=== PATIENT | male | born 1985 ===

== ENCOUNTER 2019-12-11 03:21 | Emergency (ER) | payer SELFPAY ==
[2019-12-11 03:31] VITALS: BP 168/95
[2019-12-11] MEDS ORDERED: TETRACAINE 0.5% OPHTH SOLN 4ML OU PRN (04:04)
[2019-12-11] MEDS ORDERED: FLUORESCEIN 1 MG STRIP OP ONE (04:04)
[2019-12-11] MEDS ORDERED: SODIUM CHLORIDE 0.9% 1000 ML 1,000 ML ONE (04:12)
[2019-12-11] MEDS ORDERED: SODIUM CHLORIDE 0.9% 1000 ML 1,000 ML IV ONE (04:18)
--- NOTE | 2019-12-11 06:25 | Emergency Department Report ---
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 Majority splash went to his left got a burning pain and blurry vision for which he presented to the emergency department for further evaluation and treatment options. Reports no neck pain, no odynophagia dysphagia aphasia. No fevers chills or sweats no headache. Reports no nausea or vomiting MD chief complaint: eye pain, eye redness, eye injury -: Gradual Location: left eye Place: work If Injury: none Severity: mild, moderate Consistency: constant Associated Symptoms: none. denies: nausea/vomiting, cough Treatments Prior to Arrival: none - Related Data Previous Rx's Medication Instructions Recorded Last Taken Type Ketorolac Tromethamin 0.4%(Nf) 1 drop OP QID #1 bottle 12/11/19 Unknown Rx [Acular Ls 0.4% Ophth Kimmie] Tobramycin [Tobrex] 1 drop OP Q4H #1 bottle 12/11/19 Unknown Rx Allergies Allergy/AdvReac Type Severity Reaction Status Date / Time No Known Allergies Allergy Verified 12/11/19 04:19 ED Review of Systems ROS: Stated complaint: EYE IRRITATION FROM [facility] Other details as noted in HPI Comment: All other systems reviewed and negative ED Past Medical Hx - Past Medical History Previous Medical History?: No - Surgical History Past Surgical History?: No - Social History Smoking Status: Never Smoker - Medications Home Medications: Home Medications Medication Instructions Recorded Confirmed Last Taken Type Ketorolac Tromethamin 0.4%(Nf) 1 drop OP QID #1 bottle 12/11/19 Unknown Rx [Acular Ls 0.4% Ophth Kimmie] Tobramycin [Tobrex] 1 drop OP Q4H #1 bottle 12/11/19 Unknown Rx ED Physical Exam - General Limitations: No Limitations General appearance: alert, in no apparent distress - Head Head exam: Present: atraumatic, normocephalic - Eye Eye exam: Present: normal appearance, PERRL, EOMI, nystagmus - Expanded Eye Exam Expanded Eyelids: Erythema: Left Pupils: Regular, Round: Bilateral, Reactive: Bilateral Sclera/Conjunctival: Injection: Left, Exudate: Left Visual acuity (R) = 20/: 20 (Post irrigation) Visual acuity (L) = 20/: 30 With correction: No IOP measured with: other (pH of the eye was 7.2) - ENT ENT exam: Present: mucous membranes moist - Neck Neck exam: Present: normal inspection - Respiratory Respiratory exam: Present: normal lung sounds bilaterally. Absent: respiratory distress - Cardiovascular Cardiovascular Exam: Present: regular rate, normal rhythm. Absent: systolic murmur, diastolic murmur, rubs, gallop - GI/Abdominal GI/Abdominal exam: Present: soft, normal bowel sounds - Rectal Rectal exam: Present: deferred - Extremities Exam Extremities exam: Present: normal inspection - Back Exam Back exam: Present: normal inspection - Neurological Exam Neurological exam: Present: alert, oriented X3 - Psychiatric Psychiatric exam: Present: normal affect, normal mood - Skin Skin exam: Present: warm, dry, intact, normal color. Absent: rash ED Course Vital Signs 12/11/19 03:26 Temperature 98.9 F Pulse Rate 86 Respiratory 18 Rate Blood Pressure 168/95 O2 Sat by Pulse 99 Oximetry ED Medical Decision Making - Medical Decision Making 34-year-old male status post chemical splash to the left eye with a reported engine straightener gun parts but unable to locate the exact name and type of solution. Complaining of blurry vision and eye pain. Tetracaine drops were placed to the after the pH was assessed. The wound was then evaluated for any type of abrasions or corneal damage was it was negative. The eye was then irrigated wit h saline and then in the mucus was evacuated from the eye. A Ryan's lens was placed and the eye was irrigated for 70 minutes.. Patient reported an improvement of discomfort after the irrigation. The visual acuity was evaluated and documented. No worsening/progressing symptoms patient is planned to be discharged and follow-up with ophthalmology in 24 to 48 hours Critical care attestation.: If time is entered above; I have spent that time in minutes in the direct care of this critically ill patient, excluding procedure time. ED Disposition Clinical Impression: Chemical insult, eye, Conjunctivitis Disposition: TO HOME OR SELFCARE Is pt being admited?: No Does the pt Need Aspirin: No Condition: Stable Instructions: Chemical Eye [place] (ED), How to Use Eye Drops (ED) Prescriptions: Ketorolac Tromethamin 0.4%(Nf) [Acular Ls 0.4% Ophth Kimmie] 1 drop OP QID #1 bottle Tobramycin [Tobrex] 1 drop OP Q4H #1 bottle Referrals: LUIS SANON MD [Staff Physician] - 24 Hours }
== END 2019-12-11 06:41 | disposition home or self-care (01) ==
LOC: ED 03:21
DX: H10.9 Unspecified conjunctivitis (principal); H57.89 Other specified disorders of eye and adnexa; Z79.899 Other long term (current) drug therapy
CPT/HCPCS: 99284; J7030